=== PATIENT | female | born 1950 | race Caucasian/White ===

== ENCOUNTER 2016-12-20 20:23 | Inpatient (IN) | payer OTHER ==
[~2016-12-20] VITALS: Ht 167.6 cm; Wt 92.1 kg
[~2016-12-20 20:23] MED LIST: ASPIRIN EC325 MG PO; DEPAKOTE; DEPAKOTE250 MG PO; LASIX20 MG PO; LEVAQUIN500 MG PO; LIPITOR; LO-DOSE ASPIRIN81 M1 PO; METAGLIP 5/51 TABLET PO; PLAVIX; PRILOSEC; Vibramycin, Doryx PO; ZOCOR40 MG PO; ZOLOFT50 MG PO
[2016-12-20 21:54] LABS: BASE EXCESS -5.8 mEq/L (-3 to +3); BICARBONATE 20.7 mEq/L (22-26); CARBOXY HGB 1.4 % (0-5); COMMENTS - BLOOD GASES C+A+; DEVICE VENTILATOR; FI02 100 %; MECHANICAL RATE 18 resp/min; METHEMOGLOBIN 1.1 % (0-1.5); MODE AC; PCO2 43 mm Hg (35-45); PEEP 5 CM/H20; PO2 225 mm Hg (80-100); SITE LR; TIDAL VOLUME 500 ML; TOTAL RESP RATE 18 resp/min; pH 7.29 (7.35-7.45)
[2016-12-20 22:03] LABS: HEMATOCRIT 47.5 % (36.0-46.0); MCH 28.1 PG (29.0-34.0); MCHC 32.4 G/DL (30.0-36.0); MCV 86.5 FL (83-99); MEAN PLAT.VOLUME 11.5 uM^3 (9.5-12.4); PLATELET COUNT 257 K/uL (156-360); RBC DIS.WIDTH-CV 14.5 % (11.8-14.6); RBC DIS.WIDTH-SD 45.9 % (39-53); RED BLOOD COUNT 5.49 M/uL (3.80-5.20); WHITE BLOOD COUNT 21.4 K/uL (4.1-10.2)
[2016-12-20 22:11] LABS: CHLORIDE 107 mEq/L (99-109); POTASSIUM 3.7 mEq/L (3.7-5.4); SODIUM 141 mEq/L (136-147)
[2016-12-20 22:12] LABS: GLUCOSE 322 mg/dL (70-99)
[2016-12-20 22:14] LABS: ANION GAP 15 MEQ/L (2-14)
[2016-12-20 22:16] LABS: GFR ESTIMATE (CALCULATED) > 59 mL/min/
[2016-12-20 22:17] LABS: UREA NITROGEN (BUN) 19 mg/dL (9-23)
[2016-12-20 22:55] LABS: ADD MIUA? YES; BILIRUBIN NEGATIVE; BLOOD NEGATIVE; COLOR YELLOW ((YELLOW)); GLUCOSE (STRIP) >=500; KETONES 20; LEUKOCYTES TRACE; NITRITE NEGATIVE; PROTEIN (STRIP) 100; SPECIFIC GRAVITY 1.018 (1.000-1.030); UROBILINOGEN 0.2 MG/DL (0.2-1.0)
[2016-12-20 23:16] LABS: BACTERIA NONE SEEN /HPF; EPITHELIAL CELLS RARE /HPF; HYALINE CASTS TNTC /LPF; MUCUS 4+ /LPF; RED BLOOD CELLS 0-5 /HPF (0-5); UCUL ADDED? NO; WHITE BLOOD CELLS 40-50 /HPF (0-5)
[2016-12-21] VITALS (7 sets, daily range): BP systolic 92–133; BP diastolic 53–79
[2016-12-21 02:01] LABS: METH RESISTANT S AUREUS PCR NEGATIVE (NEGATIVE)
[2016-12-21 02:02] LABS: PROBE CHECK PASS; SPECIMEN PROCESSING CONTROL PASS
[2016-12-21 02:04] LABS: TROP-I INTERPRETATION POSITIVE
[2016-12-21 02:08] LABS: TROPONIN-I 2.67 ng/mL (0.0-0.30)
[2016-12-21 05:30] LABS: HEMATOCRIT 44.5 % (36.0-46.0); MCH 28.7 PG (29.0-34.0); MCHC 32.6 G/DL (30.0-36.0); MCV 87.9 FL (83-99); MEAN PLAT.VOLUME 11.9 uM^3 (9.5-12.4); PLATELET COUNT 261 K/uL (156-360); RBC DIS.WIDTH-CV 14.9 % (11.8-14.6); RBC DIS.WIDTH-SD 47.6 % (39-53); RED BLOOD COUNT 5.06 M/uL (3.80-5.20); WHITE BLOOD COUNT 21.3 K/uL (4.1-10.2)
[2016-12-21 05:52] LABS: TROP-I INTERPRETATION POSITIVE
[2016-12-21 06:14] LABS: ANION GAP 13 MEQ/L (2-14); CHLORIDE 104 MEQ/L (99-109); GFR ESTIMATE (CALCULATED) > 59 mL/min/; GLUCOSE 193 mg/dL (70-99); MAGNESIUM 1.7 mg/dl (1.3-2.7); SAMPLE HEMOLYSIS CHECK 0; SAMPLE ICTERIC CHECK 0; SAMPLE LIPEMIA CHECK 0; SODIUM 138 MEQ/L (136-147); UREA NITROGEN (BUN) 19 mg/dL (9-23)
[2016-12-21 06:22] LABS: POTASSIUM 5.5 MEQ/L (3.7-5.4)
[2016-12-21 11:47] LABS: POINT-OF-CARE METER ID UU14174217
[2016-12-21 12:26] LABS: TROP-I INTERPRETATION POSITIVE
[2016-12-21 12:28] LABS: TROPONIN-I 2.38 ng/mL (0.0-0.30)
[2016-12-21 18:41] LABS: TROP-I INTERPRETATION POSITIVE
[2016-12-21 18:43] LABS: TROPONIN-I 1.81 ng/mL (0.0-0.30)
[2016-12-21 18:54] LABS: POINT-OF-CARE METER ID UU14174217
[2016-12-22] VITALS: BP 110/61
[2016-12-22 00:43] LABS: POINT-OF-CARE METER ID UU14174217
[2016-12-22 04:00] VITALS: BP 104/61
[2016-12-22 05:54] LABS: HEMATOCRIT 40.3 % (36.0-46.0); MCH 28.2 PG (29.0-34.0); MCV 85.4 FL (83-99); RBC DIS.WIDTH-CV 15.3 % (11.8-14.6); RBC DIS.WIDTH-SD 47.7 % (39-53); RED BLOOD COUNT 4.72 M/uL (3.80-5.20); WHITE BLOOD COUNT 18.1 K/uL (4.1-10.2)
[2016-12-22 06:44] LABS: ANION GAP 13 MEQ/L (2-14); CHLORIDE 104 MEQ/L (99-109); GFR ESTIMATE (CALCULATED) > 59 mL/min/; GLUCOSE 159 mg/dL (70-99); MAGNESIUM 1.6 mg/dl (1.3-2.7); SAMPLE HEMOLYSIS CHECK 0; SAMPLE ICTERIC CHECK 0; SAMPLE LIPEMIA CHECK 0; SODIUM 139 MEQ/L (136-147); UREA NITROGEN (BUN) 19 mg/dL (9-23)
[2016-12-22 06:56] LABS: POTASSIUM 3.7 MEQ/L (3.7-5.4)
[2016-12-22 07:05] LABS: POINT-OF-CARE METER ID UU14174217
[2016-12-22 08:00] VITALS: BP 118/60
[2016-12-22 08:47] LABS: HEMATOLOGY COMMENT 1 CCL; MEAN PLAT.VOLUME 11.4 uM^3 (9.5-12.4); PLATELET COUNT 177 K/uL (156-360)
[2016-12-22 12:00] VITALS: BP 124/59
[2016-12-22 12:39] LABS: POINT-OF-CARE METER ID UU14174217
[2016-12-22 13:30] LABS: POINT-OF-CARE METER ID UU14174217
[2016-12-22] MEDS ORDERED: DEPAKOTE250 MG PO (15:37)
[2016-12-22] MEDS ORDERED: ZOCOR40 MG PO (15:38)
[2016-12-22] MEDS ORDERED: ZOLOFT50 MG PO (15:38)
[2016-12-22] MEDS ORDERED: LO-DOSE ASPIRIN81 M2 PO (15:38)
[2016-12-22] MEDS ORDERED: METAGLIP 5/51 TABLET PO (15:38)
[2016-12-22 16:00] VITALS: BP 123/58
[2016-12-22 18:32] LABS: POINT-OF-CARE METER ID UU14174217
[2016-12-22 20:00] VITALS: BP 122/58
[2016-12-23] VITALS (16 sets, daily range): BP systolic 97–145; BP diastolic 46–61
[2016-12-23 00:48] LABS: POINT-OF-CARE METER ID UU14174217
[2016-12-23 05:33] LABS: POINT-OF-CARE METER ID UU14174217
[2016-12-23 06:20] LABS: MCH 27.9 PG (29.0-34.0); MCHC 32.4 G/DL (30.0-36.0); MCV 86.3 FL (83-99); MEAN PLAT.VOLUME 12.3 uM^3 (9.5-12.4); PLATELET COUNT 143 K/uL (156-360); RBC DIS.WIDTH-CV 15.5 % (11.8-14.6); RBC DIS.WIDTH-SD 49.2 % (39-53); RED BLOOD COUNT 3.94 M/uL (3.80-5.20); WHITE BLOOD COUNT 14.8 K/uL (4.1-10.2)
[2016-12-23 06:37] LABS: ANION GAP 7 MEQ/L (2-14); CHLORIDE 106 MEQ/L (99-109); GFR ESTIMATE (CALCULATED) > 59 mL/min/; GLUCOSE 146 mg/dL (70-99); POTASSIUM 3.9 MEQ/L (3.7-5.4); SAMPLE HEMOLYSIS CHECK 0; SAMPLE ICTERIC CHECK 0; SAMPLE LIPEMIA CHECK 0; SODIUM 138 MEQ/L (136-147); UREA NITROGEN (BUN) 15 mg/dL (9-23)
[2016-12-23 12:28] LABS: POINT-OF-CARE METER ID UU14174217
[2016-12-23 17:14] LABS: BASE EXCESS -0.7 mEq/L (-3 to +3); BICARBONATE 22.9 mEq/L (22-26); CARBOXY HGB 1.7 % (0-5); METHEMOGLOBIN 1.6 % (0-1.5)
[2016-12-23 17:15] LABS: DEVICE 840; FI02 50 %; MODE SPONT; PCO2 33 mm Hg (35-45); PEEP 5 CM/H20; PO2 68 mm Hg (80-100); PRES. SUPPORT 15 CM/H2O; SITE ALINE; TOTAL RESP RATE 26 resp/min; pH 7.45 (7.35-7.45)
[2016-12-23 17:53] LABS: POINT-OF-CARE METER ID UU14174217
[2016-12-24] VITALS (13 sets, daily range): BP systolic 112–170; BP diastolic 48–66
[2016-12-24 00:58] LABS: POINT-OF-CARE METER ID UU14162636
[2016-12-24 05:35] LABS: POINT-OF-CARE METER ID UU13113731
[2016-12-24 06:10] LABS: HEMATOCRIT 30.4 % (36.0-46.0); MCH 28.1 PG (29.0-34.0); MCHC 31.9 G/DL (30.0-36.0); MCV 88.1 FL (83-99); MEAN PLAT.VOLUME 11.6 uM^3 (9.5-12.4); PLATELET COUNT 105 K/uL (156-360); RBC DIS.WIDTH-CV 15.5 % (11.8-14.6); RBC DIS.WIDTH-SD 49.9 % (39-53); RED BLOOD COUNT 3.45 M/uL (3.80-5.20)
[2016-12-24 06:26] LABS: ANION GAP 8 MEQ/L (2-14); CHLORIDE 108 MEQ/L (99-109); GFR ESTIMATE (CALCULATED) > 59 mL/min/; GLUCOSE 164 mg/dL (70-99); POTASSIUM 3.5 MEQ/L (3.7-5.4); SAMPLE HEMOLYSIS CHECK 0; SAMPLE ICTERIC CHECK 0; SAMPLE LIPEMIA CHECK 0; SODIUM 139 MEQ/L (136-147); UREA NITROGEN (BUN) 17 mg/dL (9-23)
[2016-12-24 18:26] LABS: POINT-OF-CARE METER ID UU13113731
[2016-12-24 21:57] LABS: C DIFF TOXIN NEGATIVE (NEGATIVE)
[2016-12-24 21:59] LABS: PROBE CHECK PASS; SPECIMEN PROCESSING CONTROL PASS
[2016-12-24 23:53] LABS: POINT-OF-CARE METER ID UU13113803
[2016-12-25] VITALS (9 sets, daily range): BP systolic 118–161; BP diastolic 45–77
[2016-12-25 05:09] LABS: POINT-OF-CARE METER ID UU13113731
[2016-12-25 05:33] LABS: HEMATOCRIT 29.4 % (36.0-46.0); MCH 27.9 PG (29.0-34.0); MCV 87.2 FL (83-99); MEAN PLAT.VOLUME 12.5 uM^3 (9.5-12.4); PLATELET COUNT 131 K/uL (156-360); RBC DIS.WIDTH-CV 15.4 % (11.8-14.6); RED BLOOD COUNT 3.37 M/uL (3.80-5.20); WHITE BLOOD COUNT 7.5 K/uL (4.1-10.2)
[2016-12-25 05:58] LABS: ANION GAP 8 MEQ/L (2-14); CHLORIDE 109 MEQ/L (99-109); GFR ESTIMATE (CALCULATED) > 59 mL/min/; GLUCOSE 176 mg/dL (70-99); POTASSIUM 3.3 MEQ/L (3.7-5.4); SAMPLE HEMOLYSIS CHECK 0; SAMPLE ICTERIC CHECK 0; SAMPLE LIPEMIA CHECK 0; SODIUM 143 MEQ/L (136-147); UREA NITROGEN (BUN) 19 mg/dL (9-23)
[2016-12-25 12:11] LABS: POINT-OF-CARE METER ID UU13113731
[2016-12-25 16:18] LABS: BASE EXCESS 2.9 mEq/L (-3 to +3); BICARBONATE 27.1 mEq/L (22-26); CARBOXY HGB 1.6 % (0-5); PCO2 39 mm Hg (35-45); PO2 78 mm Hg (80-100); pH 7.45 (7.35-7.45)
[2016-12-25 16:19] LABS: COMMENTS - BLOOD GASES C+; DEVICE VENT; FI02 40 %; PEEP 5 CM/H20; PRES. SUPPORT 10 CM/H2O; SITE A LINE; TOTAL RESP RATE 28 resp/min
[2016-12-25 17:36] LABS: POINT-OF-CARE METER ID UU13113731
[2016-12-26] VITALS (8 sets, daily range): BP systolic 119–145; BP diastolic 46–68
[2016-12-26 02:07] LABS: POINT-OF-CARE METER ID UU13113731; POINT-OF-CARE USER ID PHATLC
[2016-12-26 05:33] LABS: POINT-OF-CARE METER ID UU13113731; POINT-OF-CARE USER ID PHATLC
[2016-12-26 05:54] LABS: HEMATOCRIT 33.4 % (36.0-46.0); MCH 26.8 PG (29.0-34.0); MCHC 30.8 G/DL (30.0-36.0); RBC DIS.WIDTH-SD 47.8 % (39-53); RED BLOOD COUNT 3.84 M/uL (3.80-5.20); WHITE BLOOD COUNT 7.8 K/uL (4.1-10.2)
[2016-12-26 06:16] LABS: ANION GAP 11 MEQ/L (2-14); CHLORIDE 107 MEQ/L (99-109); GFR ESTIMATE (CALCULATED) > 59 mL/min/; GLUCOSE 164 mg/dL (70-99); MAGNESIUM 2.1 mg/dl (1.3-2.7); POTASSIUM 3.8 MEQ/L (3.7-5.4); SAMPLE HEMOLYSIS CHECK 0; SAMPLE ICTERIC CHECK 0; SAMPLE LIPEMIA CHECK 0; SODIUM 146 MEQ/L (136-147); UREA NITROGEN (BUN) 17 mg/dL (9-23)
[2016-12-26 06:27] LABS: MEAN PLAT.VOLUME 11.3 uM^3 (9.5-12.4)
[2016-12-26 06:36] LABS: POINT-OF-CARE METER ID UU13113731; POINT-OF-CARE USER ID PHATLC
[2016-12-26 06:45] LABS: PLATELET COUNT 173 K/uL (156-360)
[2016-12-26 13:25] LABS: POINT-OF-CARE METER ID UU13113803
[2016-12-26 17:17] LABS: POINT-OF-CARE METER ID UU13113731
[2016-12-27] VITALS (8 sets, daily range): BP systolic 114–160; BP diastolic 42–63
[2016-12-27 00:37] LABS: POINT-OF-CARE METER ID UU13113803; POINT-OF-CARE USER ID PHATLC
[2016-12-27 06:07] LABS: HEMATOCRIT 33.6 % (36.0-46.0); MCH 28.3 PG (29.0-34.0); MCHC 32.1 G/DL (30.0-36.0); MEAN PLAT.VOLUME 12.8 uM^3 (9.5-12.4); PLATELET COUNT 184 K/uL (156-360); RBC DIS.WIDTH-CV 14.9 % (11.8-14.6); RBC DIS.WIDTH-SD 47.8 % (39-53); RED BLOOD COUNT 3.82 M/uL (3.80-5.20); WHITE BLOOD COUNT 9.2 K/uL (4.1-10.2)
[2016-12-27 06:14] LABS: POINT-OF-CARE USER ID PHATLC
[2016-12-27 07:28] LABS: ANION GAP 8 MEQ/L (2-14); CHLORIDE 109 MEQ/L (99-109); MAGNESIUM 2.4 mg/dl (1.3-2.7); POTASSIUM 3.9 MEQ/L (3.7-5.4); SAMPLE HEMOLYSIS CHECK 0; SAMPLE ICTERIC CHECK 0; SAMPLE LIPEMIA CHECK 0; SODIUM 149 MEQ/L (136-147)
[2016-12-27 07:33] LABS: GFR ESTIMATE (CALCULATED) > 59 mL/min/; GLUCOSE 129 mg/dL (70-99); UREA NITROGEN (BUN) 25 mg/dL (9-23)
[2016-12-27 12:36] LABS: POINT-OF-CARE METER ID UU13113731
[2016-12-27 17:21] LABS: POINT-OF-CARE METER ID UU13113803
[2016-12-27 23:58] LABS: POINT-OF-CARE METER ID UU13113803; POINT-OF-CARE USER ID PHATLC
[2016-12-28] VITALS (9 sets, daily range): BP systolic 127–153; BP diastolic 48–63
[2016-12-28 05:57] LABS: POINT-OF-CARE USER ID PHATLC
[2016-12-28 13:07] LABS: POINT-OF-CARE METER ID UU14174217
[2016-12-29] VITALS: BP 146/55
[2016-12-29 04:00] VITALS: BP 134/51
[2016-12-29 05:19] LABS: CHLORIDE 102 mEq/L (99-109); POTASSIUM 4.5 mEq/L (3.7-5.4); SODIUM 144 mEq/L (136-147)
[2016-12-29 05:21] LABS: GLUCOSE 164 mg/dL (70-99)
[2016-12-29 05:23] LABS: ANION GAP 9 MEQ/L (2-14)
[2016-12-29 05:25] LABS: GFR ESTIMATE (CALCULATED) > 59 mL/min/
[2016-12-29 05:26] LABS: UREA NITROGEN (BUN) 19 mg/dL (9-23)
[2016-12-29 08:00] VITALS: BP 171/59
[2016-12-29 15:00] VITALS: BP 146/55
[2016-12-29 20:00] VITALS: BP 141/52
[2016-12-30] VITALS: BP 142/51
[2016-12-30 04:00] VITALS: BP 124/51
[2016-12-30 06:21] LABS: ANION GAP 9 MEQ/L (2-14); CHLORIDE 101 MEQ/L (99-109); GFR ESTIMATE (CALCULATED) > 59 mL/min/; GLUCOSE 160 mg/dL (70-99); SAMPLE HEMOLYSIS CHECK 0; SAMPLE ICTERIC CHECK 0; SAMPLE LIPEMIA CHECK 0; SODIUM 144 MEQ/L (136-147); UREA NITROGEN (BUN) 21 mg/dL (9-23)
[2016-12-30 08:00] VITALS: BP 146/58
[2016-12-30 11:22] LABS: POINT-OF-CARE METER ID UU13113748
[2016-12-30 12:00] VITALS: BP 119/91
[2016-12-30 16:00] VITALS: BP 141/49
[2016-12-30 17:17] LABS: POINT-OF-CARE METER ID UU14174217
[2016-12-30 20:00] VITALS: BP 132/51
[2016-12-30 22:16] LABS: POINT-OF-CARE METER ID UU14162636
[2016-12-31] VITALS: BP 139/53
[2016-12-31 04:00] VITALS: BP 123/51
[2016-12-31 08:00] VITALS: BP 150/52
[2016-12-31 08:46] LABS: POINT-OF-CARE METER ID UU13113731
[2016-12-31 13:00] VITALS: BP 124/54
[2016-12-31 13:07] LABS: POINT-OF-CARE METER ID UU14162636
== END 2016-12-31 15:05 | disposition home health service (06) | DRG 280 ==
LOC: EME → EDBD 20:23 → EDOF 22:12 → 4WEST 22:12
PROVIDERS: Emergency Medicine; Family Medicine; Internal Medicine Nephrology; Physician Assistant Medical
PROC: 5A1955Z Respiratory Ventilation, Greater than 96 Consecutive Hours (ICD-10-PCS; principal; 2016-12-20)
PROC: 03HY32Z Insertion of Monitoring Device into Upper Artery, Percutaneous Approach (ICD-10-PCS; principal; 2016-12-20)
PROC: 02HV33Z Insertion of Infusion Device into Superior Vena Cava, Percutaneous Approach (ICD-10-PCS; 2016-12-21)
DX: I21.4 Non-ST elevation (NSTEMI) myocardial infarction (principal); J96.01 Acute respiratory failure with hypoxia; J18.9 Pneumonia, unspecified organism; I95.9 Hypotension, unspecified; E87.2 Acidosis; I42.9 Cardiomyopathy, unspecified; E11.65 Type 2 diabetes mellitus with hyperglycemia; I27.2 Other secondary pulmonary hypertension; G93.89 Other specified disorders of brain; R60.0 Localized edema; G40.901 Epilepsy, unspecified, not intractable, with status epilepticus; F33.9 Major depressive disorder, recurrent, unspecified; E87.6 Hypokalemia; E78.5 Hyperlipidemia, unspecified; D64.9 Anemia, unspecified; Z87.891 Personal history of nicotine dependence; Z79.84 Long term (current) use of oral hypoglycemic drugs; N39.0 Urinary tract infection, site not specified; Z66 Do not resuscitate; I10 Essential (primary) hypertension; G81.91 Hemiplegia, unspecified affecting right dominant side; Z87.11 Personal history of peptic ulcer disease; R40.2432 Glasgow coma scale score 3-8, at arrival to emergency department; I69.320 Aphasia following cerebral infarction; I69.398 Other sequelae of cerebral infarction; R00.1 Bradycardia, unspecified; I65.29 Occlusion and stenosis of unspecified carotid artery; I25.10 Atherosclerotic heart disease of native coronary artery without angina pectoris; E66.9 Obesity, unspecified; Z68.32 Body mass index [BMI] 32.0-32.9, adult
CPT/HCPCS: 31500; 36600; 36620; 70450; 71010; 78452; 80048; 80164; 80170; 80202; 81003; 82803; 82948; 83605; 83735; 84100; 84484; 85027; 87040; 87070; 87086; 87205; 87493; 87641; 87801; 92610 GN; 93005; 93017; 93306; 93308; 94002; 94003; 94640; 94640 76; 94760; 94799; 95819; 97530 GO; 99202; 99281; 99285; A9500; C9113; G0008; J1580; J1644; J1650; J1815; J1940; J1953; J2060; J2704; J2785; J2920; J2930; J3370; J3475; J3480; J7030; J7050; J7120; P9045; S0028